=== PATIENT | female | born 1980 | race Caucasian/White ===

== ENCOUNTER 2017-04-17 22:44 | Inpatient (IN) | payer MEDICAID, OTHER ==
[~2017-04-17] VITALS: Ht 175.3 cm; Wt 102.3 kg
[~2017-04-17 22:44] MED LIST: CLOZ100 PO; DSS100 PO; VALP250S23 PO
[2017-04-17] MEDS ORDERED: CLOZ50TA PO (23:04)
[2017-04-17] MEDS ORDERED: OLAN10TA3 PO (23:04)
[2017-04-17] MEDS ORDERED: OLAN20TA2 PO (23:04)
[2017-04-17] MEDS ORDERED: CLOZ100T PO (23:04)
[2017-04-17] MEDS ORDERED: PALI234D IM (23:04)
[2017-04-17] MEDS ORDERED: SIMV10TA6 PO (23:04)
[2017-04-17] MEDS ORDERED: OXYB5TAB10 PO (23:04)
[2017-04-17] MEDS ORDERED: TOPI200T PO (23:04)
[2017-04-17] MEDS ORDERED: SODIUM CHLORIDE 0.9% 1,000 ML IV ONE (23:30)
[2017-04-17] MEDS ORDERED: 0.9% SODIUM CHLORIDE 10 ML SYRINGE IVP PRN (23:30)
[2017-04-18 00:06] LABS: HEMATOCRIT 43.5 % (36-46); HEMOGLOBIN 14.3 g/dL (12.0-16.0); MEAN CORPUSCULAR HEMOGLOBIN 28.5 pg (26.0-34.0); MEAN CORPUSCULAR HGB CONC 32.9 G/dL (31.0-37.0); MEAN CORPUSCULAR VOLUME 86 fL (80-100); PLATELET COUNT (AUTO) 148 K/uL (150-450); RED BLOOD CELL COUNT(AUTO) 5.04 MIL/uL (4.00-5.20); RED CELL DISTRIBUTION WIDTH 14.3 % (11.5-14.5); WHITE BLOOD COUNT (AUTO) 8.7 K/uL (4.5-11.0)
[2017-04-18 00:20] LABS: INR 1.1 (0.9-1.1); PROTHROMBIN TIME 11.9 SEC (9.4-11.6)
[2017-04-18 00:26] LABS: ALANINE AMINOTRANSFERASE 58 U/L (12-78); ALBUMIN 3.4 g/dL (3.4-5.0); ASPARTATE AMINOTRANSFERASE 82 U/L (15-37); BILIRUBIN,TOTAL 0.5 mg/dL (0.1-1.0); CALCIUM, TOTAL 8.7 mg/dL (8.8-10.5); CARBON DIOXIDE 20 mmol/L (22-29); CREATININE 0.75 mg/dL (0.60-1.30); GLOMERULAR FILTR. RATE CALC > 60 mL/min (>60); UREA NITROGEN, BLOOD 11 mg/dL (7-18); VALPROIC ACID 32 mcg/mL (50-100)
[2017-04-18 00:35] LABS: ANION GAP 11 mmol/L (8-16); CHLORIDE 104 mmol/L (98-107); POTASSIUM 5.2 mmol/L (3.5-5.1); SODIUM SERUM 135 mmol/L (136-145)
[2017-04-18 00:45] LABS: APPEARANCE,URINE TURBID (CLEAR); GLUCOSE, URINE (UA) NEGATIVE (NEGATIVE); KETONES,URINE TRACE mg/dL (NEGATIVE); LEUKOCYTE ESTERASE ,URINE NEGATIVE (NEGATIVE); OCCULT BLOOD,URINE NEGATIVE (NEGATIVE); PROTEIN,URINE POS 1+ (NEGATIVE)
[2017-04-18 00:47] LABS: ADD UA MICROSCOPIC NO
[2017-04-18 00:56] LABS: TOTAL CELLS COUNTED 100
[2017-04-18 00:57] LABS: LYMPHOCYTES % (MANUAL) 22 % (22-44)
[2017-04-18] MEDS ORDERED: AZITHROMYCIN 500 MG/NS 250 ML IV ONE (01:30)
[2017-04-18] MEDS ORDERED: CefTRIAXone 1 GM/DEXTROSE 50 ML IV ONE (01:30)
[2017-04-18 02:49] VITALS: BP 135/72
[2017-04-18 07:53] VITALS: BP 147/85
[2017-04-18] MEDS ORDERED: ONDANSETRON HCL 4 MG/2 ML VIAL IVP PRN (11:00)
[2017-04-18] MEDS ORDERED: 0.9% SODIUM CHLORIDE 10 ML SYRINGE IVP PRN (11:00)
[2017-04-18] MEDS ORDERED: OxyCODONE HCL/ACETAMINOPHEN 5-325 MG TABLET PO PRN ×2 (11:00)
[2017-04-18 11:43] VITALS: BP 128/62
[2017-04-18] MEDS: PANTOPRAZOLE SODIUM 40 MG/VIAL IVP SCH (12:14)
[2017-04-18] MEDS: DOCUSATE SODIUM 100 MG CAPSULE PO SCH ×2 (12:14→19:45)
[2017-04-18] MEDS ORDERED: INFLUENZA VIRUS VACCINE QVS 2017-18 (3YR+)/PF 60 MCG/0.5 ML SYRINGE IM ONE (13:30)
[2017-04-18] MEDS: SODIUM POLYSTYRENE SULFONATE 15 GM/60 ML SUSPENSION BOTTLE PO ONE ×2 (14:45→18:48)
[2017-04-18 15:54] VITALS: BP 132/64
[2017-04-18] MEDS ORDERED: BARIUM SULFATE 0.1% SUSPENSION 450 ML BOTTLE ONE (16:09)
[2017-04-18] MEDS ORDERED: IOVERSOL 320 MG/ML 100 ML VIAL ONE (16:09)
[2017-04-18] MEDS ORDERED: SODIUM CHLORIDE 0.9% 100 ML ONE (16:09)
[2017-04-18 19:54] VITALS: BP 131/71
[2017-04-18 20:52] LABS: APPEARANCE,URINE CLOUDY (CLEAR); GLUCOSE, URINE (UA) NEGATIVE (NEGATIVE); KETONES,URINE NEGATIVE (NEGATIVE); LEUKOCYTE ESTERASE ,URINE MODERATE (NEGATIVE); OCCULT BLOOD,URINE NEGATIVE (NEGATIVE); PROTEIN,URINE TRACE (NEGATIVE)
[2017-04-18 21:02] LABS: RBC,URINE None Seen /HPF (0-2); RENAL EPITHELIAL CELLS,URINE Few /LPF (None Seen); SQUAMOUS EPITHELIAL CELL,UR Few /LPF (None Seen)
[2017-04-18 21:08] LABS: INFLUENZA TYPE B NEGATIVE FOR TYPE B (NEGATIVE)
[2017-04-18] MEDS: OSELTAMIVIR PHOSPHATE 75 MG CAPSULE PO SCH (22:17)
[2017-04-18 23:18] VITALS: BP 115/55
[2017-04-19] MEDS ORDERED: CefTRIAXone 1 GM/DEXTROSE 50 ML IV SCH (01:00)
[2017-04-19 04:00] VITALS: BP 125/58
[2017-04-19 06:36] LABS: ANION GAP 12 mmol/L (8-16); CALCIUM, TOTAL 8.5 mg/dL (8.8-10.5); CARBON DIOXIDE 22 mmol/L (22-29); CHLORIDE 106 mmol/L (98-107); CREATININE 0.84 mg/dL (0.60-1.30); GLOMERULAR FILTR. RATE CALC > 60 mL/min (>60); POTASSIUM 3.2 mmol/L (3.5-5.1); SODIUM SERUM 140 mmol/L (136-145); UREA NITROGEN, BLOOD 10 mg/dL (7-18)
[2017-04-19 06:50] LABS: BASOPHILS % (AUTO) 0.2 % (0.0-2.0); EOSINOPHILS % (AUTO) 0 % (1.0-6.0); HEMATOCRIT 39.1 % (36-46); HEMOGLOBIN 13.1 g/dL (12.0-16.0); LYMPHOCYTES # (AUTO) 2.4 K/uL (1.0-4.8); LYMPHOCYTES % (AUTO) 18.5 % (22.0-44.0); MEAN CORPUSCULAR HEMOGLOBIN 28.7 pg (26.0-34.0); MEAN CORPUSCULAR HGB CONC 33.6 G/dL (31.0-37.0); MEAN CORPUSCULAR VOLUME 85 fL (80-100); MONOCYTES # (AUTO) 1.6 K/uL (0.1-1.0); MONOCYTES % (AUTO) 12.7 % (2.0-9.0); NEUTROPHILS # (AUTO) 8.8 K/uL (1.8-7.7); NEUTROPHILS % (AUTO) 68.6 % (40.0-70.0); PLATELET COUNT (AUTO) 139 K/uL (150-450); RED BLOOD CELL COUNT(AUTO) 4.57 MIL/uL (4.00-5.20); RED CELL DISTRIBUTION WIDTH 13.9 % (11.5-14.5); WHITE BLOOD COUNT (AUTO) 12.8 K/uL (4.5-11.0)
[2017-04-19 07:40] VITALS: BP 115/63
[2017-04-19] MEDS: PANTOPRAZOLE SODIUM 40 MG/VIAL IVP SCH (08:55)
[2017-04-19] MEDS: DOCUSATE SODIUM 100 MG CAPSULE PO SCH ×2 (08:55→20:42)
[2017-04-19] MEDS: OSELTAMIVIR PHOSPHATE 75 MG CAPSULE PO SCH ×2 (08:56→20:42)
[2017-04-19 11:07] VITALS: BP 122/64
[2017-04-19 15:35] VITALS: BP 116/70
[2017-04-19 20:39] VITALS: BP 108/59
[2017-04-19 23:09] VITALS: BP 117/60
[2017-04-20 07:48] VITALS: BP 117/64
[2017-04-20] MEDS: OSELTAMIVIR PHOSPHATE 75 MG CAPSULE PO SCH ×2 (08:42→20:37)
[2017-04-20] MEDS: PANTOPRAZOLE SODIUM 40 MG/VIAL IVP SCH (08:42)
[2017-04-20] MEDS: DOCUSATE SODIUM 100 MG CAPSULE PO SCH ×2 (08:42→20:37)
[2017-04-20 11:34] VITALS: BP 116/68
[2017-04-20] MEDS ORDERED: POTASSIUM CHL 10 MEQ/WATER 50 ML IV PRN (12:30)
[2017-04-20] MEDS ORDERED: LOPERAMIDE HCL 2 MG CAPSULE PO PRN (12:45)
[2017-04-20] MEDS: POTASSIUM CHLORIDE 20 MEQ ER TABLET PO PRN (12:53)
[2017-04-20] MEDS: LACTOBACILLUS ACIDOPHILUS/BULGARICUS TABLET PO SCH ×2 (15:45→20:38)
[2017-04-20 16:07] VITALS: BP 124/66
[2017-04-20 23:16] VITALS: BP 104/62
[2017-04-21 03:38] VITALS: BP 110/63
[2017-04-21 06:23] LABS: BASOPHILS % (AUTO) 0.2 % (0.0-2.0); EOSINOPHILS % (AUTO) 0 % (1.0-6.0); HEMATOCRIT 36.9 % (36-46); HEMOGLOBIN 12.5 g/dL (12.0-16.0); LYMPHOCYTES % (AUTO) 57.6 % (22.0-44.0); MEAN CORPUSCULAR HEMOGLOBIN 28.8 pg (26.0-34.0); MEAN CORPUSCULAR HGB CONC 33.9 G/dL (31.0-37.0); MEAN CORPUSCULAR VOLUME 85 fL (80-100); MONOCYTES # (AUTO) 0.4 K/uL (0.1-1.0); MONOCYTES % (AUTO) 8.4 % (2.0-9.0); NEUTROPHILS # (AUTO) 1.7 K/uL (1.8-7.7); NEUTROPHILS % (AUTO) 33.8 % (40.0-70.0); PLATELET COUNT (AUTO) 181 K/uL (150-450); RED BLOOD CELL COUNT(AUTO) 4.34 MIL/uL (4.00-5.20); RED CELL DISTRIBUTION WIDTH 14.2 % (11.5-14.5); WHITE BLOOD COUNT (AUTO) 5.2 K/uL (4.5-11.0)
[2017-04-21 06:52] VITALS: BP 146/69
[2017-04-21 07:03] LABS: ANION GAP 12 mmol/L (8-16); CALCIUM, TOTAL 8.9 mg/dL (8.8-10.5); CARBON DIOXIDE 21 mmol/L (22-29); CHLORIDE 110 mmol/L (98-107); CREATININE 0.61 mg/dL (0.60-1.30); GLOMERULAR FILTR. RATE CALC > 60 mL/min (>60); POTASSIUM 3.5 mmol/L (3.5-5.1); SODIUM SERUM 143 mmol/L (136-145); UREA NITROGEN, BLOOD 6 mg/dL (7-18)
[2017-04-21 07:18] VITALS: BP 127/58
[2017-04-21] MEDS: DOCUSATE SODIUM 100 MG CAPSULE PO SCH ×2 (08:54→20:10)
[2017-04-21] MEDS: PANTOPRAZOLE SODIUM 40 MG DR TABLET PO SCH (08:55)
[2017-04-21] MEDS: OSELTAMIVIR PHOSPHATE 75 MG CAPSULE PO SCH ×2 (08:55→20:10)
[2017-04-21] MEDS: LACTOBACILLUS ACIDOPHILUS/BULGARICUS TABLET PO SCH ×3 (08:56→20:10)
[2017-04-21 19:44] VITALS: BP 104/66
[2017-04-21 23:48] VITALS: BP 107/60
[2017-04-22 03:48] VITALS: BP 98/59
[2017-04-22 06:01] LABS: BASOPHILS % (AUTO) 0.2 % (0.0-2.0); EOSINOPHILS % (AUTO) 0 % (1.0-6.0); HEMATOCRIT 37.9 % (36-46); HEMOGLOBIN 12.8 g/dL (12.0-16.0); LYMPHOCYTES # (AUTO) 3.7 K/uL (1.0-4.8); LYMPHOCYTES % (AUTO) 55.5 % (22.0-44.0); MEAN CORPUSCULAR HEMOGLOBIN 28.9 pg (26.0-34.0); MEAN CORPUSCULAR HGB CONC 33.9 G/dL (31.0-37.0); MEAN CORPUSCULAR VOLUME 85 fL (80-100); MONOCYTES # (AUTO) 0.6 K/uL (0.1-1.0); MONOCYTES % (AUTO) 9.5 % (2.0-9.0); NEUTROPHILS # (AUTO) 2.3 K/uL (1.8-7.7); NEUTROPHILS % (AUTO) 34.8 % (40.0-70.0); PLATELET COUNT (AUTO) 230 K/uL (150-450); RED BLOOD CELL COUNT(AUTO) 4.44 MIL/uL (4.00-5.20); WHITE BLOOD COUNT (AUTO) 6.7 K/uL (4.5-11.0)
[2017-04-22 06:23] LABS: ANION GAP 10 mmol/L (8-16); CALCIUM, TOTAL 8.9 mg/dL (8.8-10.5); CARBON DIOXIDE 24 mmol/L (22-29); CHLORIDE 109 mmol/L (98-107); CREATININE 0.78 mg/dL (0.60-1.30); GLOMERULAR FILTR. RATE CALC > 60 mL/min (>60); POTASSIUM 3.3 mmol/L (3.5-5.1); SODIUM SERUM 143 mmol/L (136-145); UREA NITROGEN, BLOOD 8 mg/dL (7-18)
[2017-04-22 07:17] VITALS: BP 102/65
[2017-04-22] MEDS: DOCUSATE SODIUM 100 MG CAPSULE PO SCH ×2 (08:13→19:38)
[2017-04-22] MEDS: OSELTAMIVIR PHOSPHATE 75 MG CAPSULE PO SCH ×2 (08:13→19:38)
[2017-04-22] MEDS: PANTOPRAZOLE SODIUM 40 MG DR TABLET PO SCH (08:13)
[2017-04-22] MEDS: LACTOBACILLUS ACIDOPHILUS/BULGARICUS TABLET PO SCH ×3 (08:13→19:38)
[2017-04-22 11:18] VITALS: BP 103/59
[2017-04-22 15:50] VITALS: BP 127/77
[2017-04-22 19:51] VITALS: BP 112/67
[2017-04-22 23:30] VITALS: BP 111/66
[2017-04-23 03:30] VITALS: BP 109/68
[2017-04-23 07:55] VITALS: BP 101/59
[2017-04-23 11:48] VITALS: BP 98/59
[2017-04-23] MEDS: LACTOBACILLUS ACIDOPHILUS/BULGARICUS TABLET PO SCH ×3 (14:05→20:56)
[2017-04-23] MEDS: DOCUSATE SODIUM 100 MG CAPSULE PO SCH ×3 (14:05→21:00)
[2017-04-23] MEDS: OSELTAMIVIR PHOSPHATE 75 MG CAPSULE PO SCH (14:06)
[2017-04-23] MEDS: PANTOPRAZOLE SODIUM 40 MG DR TABLET PO SCH (14:06)
[2017-04-23 15:45] VITALS: BP 104/64
[2017-04-23 20:15] VITALS: BP 102/70
[2017-04-23 23:26] VITALS: BP 100/66
[2017-04-24 04:53] VITALS: BP 111/75
[2017-04-24 08:12] VITALS: BP 127/77
[2017-04-24] MEDS: PANTOPRAZOLE SODIUM 40 MG DR TABLET PO SCH (08:29)
[2017-04-24] MEDS: LACTOBACILLUS ACIDOPHILUS/BULGARICUS TABLET PO SCH ×2 (08:29→16:22)
[2017-04-24] MEDS: DOCUSATE SODIUM 100 MG CAPSULE PO SCH (08:29)
[2017-04-24 11:34] VITALS: BP 122/70
[2017-04-24] MEDS: POTASSIUM CHLORIDE 20 MEQ ER TABLET PO PRN (13:45)
[2017-04-24 15:50] VITALS: BP 111/76
== END 2017-04-24 20:25 | DRG 720 ==
LOC: EMS 22:49 → 6N 04-18 02:04
PROVIDERS: ADMIT Internal Medicine; ATTEND Internal Medicine
DX: A41.9 Sepsis, unspecified organism (principal); J10.00 Influenza due to other identified influenza virus with unspecified type of pneumonia; F20.0 Paranoid schizophrenia; E87.6 Hypokalemia; D64.9 Anemia, unspecified; E78.00 Pure hypercholesterolemia, unspecified; R09.02 Hypoxemia; Z28.21 Immunization not carried out because of patient refusal
CPT/HCPCS: 51701; 74177; 83605; 84132; 85007; 87040; 87081; 87086; 87804; 93005; 96361; 96365; 96368; 99285; C9113; J0456; J0696; J7030; J7050

== ENCOUNTER 2017-08-19 12:40 | Emergency (ER) | payer OTHER ==
[~2017-08-19] VITALS: Ht 157.5 cm; Wt 87.3 kg
[~2017-08-19 12:40] MED LIST changes: -CLOZ100 PO; +CLOZ100T PO; +CLOZ50TA PO; -DSS100 PO; +OLAN10TA3 PO; +OLAN20TA2 PO; +OXYB5TAB10 PO; +PALI234D IM; +SIMV10TA6 PO; +TOPI200T PO; -VALP250S23 PO
[2017-08-19] MEDS ORDERED: IBUPROFEN 600 MG TABLET PO ONE (13:45)
[2017-08-19] MEDS ORDERED: DOCU250C91 PO (14:22)
[2017-08-19 17:15] VITALS: BP 118/82
== END 2017-08-19 17:29 | disposition home or self-care (01) ==
LOC: EMS 12:40
DX: S30.0XXA Contusion of lower back and pelvis, initial encounter (principal); S70.02XA Contusion of left hip, initial encounter; F99 Mental disorder, not otherwise specified; Z88.8 Allergy status to other drugs, medicaments and biological substances; W01.0XXA Fall on same level from slipping, tripping and stumbling without subsequent striking against object, initial encounter; Y93.01 Activity, walking, marching and hiking; Y92.89 Other specified places as the place of occurrence of the external cause; Y99.8 Other external cause status
CPT/HCPCS: 72072; 73503; 99285

== ENCOUNTER 2025-03-29 17:10 | Emergency (ER) | payer OTHER ==
[~2025-03-29] VITALS: Ht 157.5 cm; Wt 87.3 kg
[~2025-03-29 17:10] MED LIST changes: -CLOZ100T PO; +CLOZ100T61 PO; -CLOZ50TA PO; +CLOZ50TA9 PO; +DOCU-412 PO; -OLAN10TA3 PO; +OLAN10TA74 PO; -OLAN20TA2 PO; +OXYB5 PO; -OXYB5TAB10 PO; -SIMV10TA6 PO; +SIMV10TA97 PO; +[UNRECOGNIZED DRUG - CODE] PO
[2025-03-29 17:15] VITALS: TEMP 97.9
[2025-03-29] MEDS: ACETAMINOPHEN 500 MG TABLET PO ONE (18:19)
[2025-03-29 21:19] VITALS: BP 133/82; PULSE 89; RESP 20; O2SAT 98
== END 2025-03-29 21:27 ==
LOC: EMS 17:26
DX: S00.83XA Contusion of other part of head, initial encounter (principal); S00.511A Abrasion of lip, initial encounter; E78.00 Pure hypercholesterolemia, unspecified; Z88.5 Allergy status to narcotic agent; W19.XXXA Unspecified fall, initial encounter; Y93.89 Activity, other specified; Y92.89 Other specified places as the place of occurrence of the external cause; Y99.8 Other external cause status
CPT/HCPCS: 70450; 70486; 72125; 99284